=== PATIENT | female | born 1950 | race Caucasian/White ===

== ENCOUNTER → 2019-02-14 18:17 | Outpatient (CLI) | payer MEDICARE, MEDICAID, SELFPAY ==
[2019-02-14 18:22] LABS: Microscopic, Urine URINE MICROSCOPIC (MICROSCOPIC)
[2019-02-14 19:21] LABS: Appearance,Urine CLEAR (Clear); Bilirubin,Urine Negative (Negative); Blood, Urine Negative (Negative); Color,Urine YELLOW (Yellow); Glucose,Urine (UA) 3+ (Negative); Ketones,Urine TRACE (Negative); Leukocyte Esterase,Urine 1+ (Negative); Nitrate,Urine Negative (Negative); PH,Urine 5.5 (5.0-8.5); Protein,Urine Negative (Negative); Urobilinogen,Urine 0.2 EU/dl (0.2)
[2019-02-14 19:26] LABS: Bacteria,Urine 2+ /lpf; WBC,Urine 20-50 #/hpf (0-3)
== END ==
PROVIDERS: Visit Provider Internal Medicine Adolescent Medicine
DX: R30.0 Dysuria (principal)
CPT/HCPCS: 81001; 87086; 87088; 87186

== ENCOUNTER → 2019-04-17 17:54 | Outpatient (CLI) | payer MEDICARE, MEDICAID, SELFPAY ==
[2019-04-17 17:57] LABS: Microscopic, Urine URINE MICROSCOPIC (MICROSCOPIC)
[2019-04-17 18:22] LABS: Appearance,Urine CLEAR (Clear); Bilirubin,Urine Negative (Negative); Blood, Urine Negative (Negative); Color,Urine YELLOW (Yellow); Glucose,Urine (UA) 3+ (Negative); Ketones,Urine Negative (Negative); Leukocyte Esterase,Urine Negative (Negative); Nitrate,Urine Negative (Negative); PH,Urine 5.5 (5.0-8.5); Protein,Urine Negative (Negative); Urobilinogen,Urine 0.2 EU/dl (0.2)
[2019-04-17 19:17] LABS: Bacteria,Urine 2+ /lpf
== END ==
PROVIDERS: Visit Provider Internal Medicine Adolescent Medicine
DX: R30.0 Dysuria (principal)
CPT/HCPCS: 81001; 87086; 87088; 87186

== ENCOUNTER 2019-10-08 09:19 | Emergency (ER) | payer MEDICARE, MEDICAID, SELFPAY ==
--- NOTE | 2019-10-08 09:20 | PC.NURSE ---
to ed per squad pt from [place] sent for eval report pt found hypotensive with low o2 sats. squad reports pt BS was 40 pt given amp D50 IV and 2mg narcan with no response.pt admits to ed unresponsive, bagged per BVM +pulse with HR of 77
--- NOTE | 2019-10-08 09:26 | PC.NURSE ---
air way attempted with no success
--- NOTE | 2019-10-08 09:33 | PC.NURSE ---
no pulse noted cpr started
--- NOTE | 2019-10-08 09:35 | PC.NURSE ---
pulse check no pulse cpr resumed
--- NOTE | 2019-10-08 09:36 | PC.NURSE ---
anesthesia at bedside
--- NOTE | 2019-10-08 09:37 | PC.NURSE ---
+pulse HR 75 b/p 83/34
--- NOTE | 2019-10-08 09:37 | PC.NURSE ---
pulse check no pulse cpr resume
--- NOTE | 2019-10-08 09:48 | PC.NURSE ---
I GEL placed per anesthesia
--- NOTE | 2019-10-08 09:48 | PC.NURSE ---
pt difficult airway attempted several times with no success.
--- NOTE | 2019-10-08 09:52 | PC.NURSE ---
et tube placed #7 at 20 lip bs bilaterally per red feeback.
--- NOTE | 2019-10-08 09:57 | PC.NURSE ---
+ pulse cpr held HR 102 B/P 128/56
[2019-10-08 10:11] VITALS: BMI 30.7
--- NOTE | 2019-10-08 10:12 | PC.NURSE ---
no pulse cpr started
--- NOTE | 2019-10-08 10:13 | PC.NURSE ---
TOD [address] gauthier
--- NOTE | 2019-10-08 11:04 | PC.NURSE ---
kendrick bruce notified of , nurse states she will call pt's sister and return call regarding home
--- NOTE | 2019-10-08 12:56 | [facility].EDCPR ---
ED Disposition Clinical Impression: Cardiac arrest, Acute Massive Pulmonary Embolism, Acute myocardial infarction, Sudden cardiac Disposition: Condition on Discharge: Critical Instructions: Cardiac Arrest Referrals: Provider,Referral, MD [Primary Care Provider] - - Critical Care Critical Care Time: Yes Attestation: On 10/08/19, the high probability of a clinically significant, sudden or life threatening deterioration of the following system(s) required my full and direct attention, intervention and personal management. The time I documented below is in addition to time spent performing reported procedures but includes the following listed in this critical care notation. Total Critical Care Time: 60 Vital system(s) involved:: Circulatory Failure, Central Nervous System, Respiratory Failure, Renal Failure, Shock (Hemorrhage), Shock (Septic) My critical care processes included: Assessment & monitoring of V/S, Initial and Re-exams, Data Review/Interpretation, Coordinating Care, Medication Orders and management, Documentation [facility] Code Documentation - Arrest Information Outside of Hospital The Code Document Section documentation for [id number] Cira Bowman was populated with data that defaulted in from the learning and development analyst in the Code Assessment on f_Reg Service Date] to provide within this report, the status and treatment of the patient in the ED during a Code. This documentation will be supplemented with my direct findings within the body of the report. Date Treatment Initiated: 10/08/19 Time Treatment Initiated: 09:20 Treatment Initiated By: EMS Arrest Witnessed: Yes Estimated Down Time: 35 minutes - Arrest Information in Hospital Date of Arrest: 10/08/19 Time of Arrest: 09:30 Location of Arrest In-house: Emergency Department Type of Arrest In-house: Cardiac In-house Arrest Witnessed: Yes - Monitored - ALS Code Inititation ALS Initiated By: EMS ALS Type: ACLS - Patient Condition At Code Start Condition of Patient at Start of Code: Pulseless, Apneic, Unconscious Monitoring Devices: ECG Monitor, Pulse Oximeter, Apnea Monitor, Capnograph - Oxygenation Oxygen Breathing Status: Apneic Oxygen Delivery Method: Bag-Valve Mask - Labs Specimens collected: Blood Culture x 2, Urine - Code End Time Code Ended: 10:13 Patient Successfully Resuscitated: No Reason Code Ended: - Efforts Terminated Family Members Present During Code: No Medical Decision Making - Medical Records Medical records reviewed: Yes: I reviewed the patient's medical records. - Edward Inquiry Pt receiving controlled substance: No - Lab Data Lab results reviewed: Yes: I reviewed the patient's lab results. Orders (Tests/Meds): ED MEDICATIONS Generic Name Dose Route Start Last Admin Trade Name Laura PRN Reason Stop Dose Admin Epinephrine HCl 1 mg 10/08/19 10:26 10/08/19 09:55 Epinephrine 0.1mg/Ml 10ml Syringe IV 11/07/19 10:25 1 mg NEEDED PRN Administration Code Blue Med Administration Sodium Chloride 3 ml 10/08/19 10:13 Sodium Chloride 3% 15ml Neb IH 11/07/19 10:12 ONCE PRN INDUCE SPUTUM COLLECTION Discontinued Medications Generic Name Dose Route Start Last Admin Trade Name Laura PRN Reason Stop Dose Admin Etomidate 8 mg 10/08/19 09:23 10/08/19 09:24 Amidate 40mg/20ml Vial IV 10/08/19 09:24 8 mg ONCE ONE Administration Etomidate 8 mg 10/08/19 09:32 10/08/19 09:32 Amidate 40mg/20ml Vial IV 10/08/19 09:33 8 mg ONCE ONE Administration Sodium Chloride 1,000 mls @ 999 mls/hr 10/08/19 11:00 10/08/19 09:30 Sod Chlor 0.9% 1000ml Bag IV 10/08/19 12:00 999 mls/hr .Q1H1M HAROON Administration Succinylcholine Chloride 100 mg 10/08/19 10:25 10/08/19 09:24 Anectine 20mg/Ml 10ml Mdv IV 10/08/19 10:26 100 mg ONCE ONE Administration Succinylcholine Chloride 100 mg 10/08/19 10:25 10/08/19 09:28 Anectine 20mg/Ml 10ml Mdv IV 10/08/19 10:26 100 m
[2019-10-08 13:27] VITALS: BP 0/0; PULSE 0; RESP 0; TEMP -17.7; TEMP 0; O2SAT 0
== END 2019-10-08 13:31 | disposition expired ==
PROVIDERS: Emergency Provider Family Medicine
DX: I46.9 Cardiac arrest, cause unspecified (principal); I21.9 Acute myocardial infarction, unspecified; I26.99 Other pulmonary embolism without acute cor pulmonale; I25.10 Atherosclerotic heart disease of native coronary artery without angina pectoris; Z88.0 Allergy status to penicillin; Z88.2 Allergy status to sulfonamides; Z88.5 Allergy status to narcotic agent
CPT/HCPCS: 31500; 87070; 87205; 96365; 96375; 96376; 99282; J0330